=== PATIENT | female | born 1985 | race Asian ===

== ENCOUNTER 2023-07-10 16:30 | Outpatient (CLI) | payer OTHER ==
--- NOTE | 2023-07-10 17:11 | XRAY Report ---
PROCEDURE: Ankle 3 View RT INDICATIONS: PAIN OF RIGHT ANKLE JOINT TECHNIQUE: 3 views of the ankle were acquired. COMPARISON: None. FINDINGS: Bones: No acute fractures or dislocations. Ankle mortise is normally aligned. No suspicious bony l esions. Chronic appearing ossifications project over the distal medial malleolus and the lateral ankl e mortise. Oval ossification projecting over the lateral ankle mortise adjacent to the lateral talar dome is not definitively confirmed to be intra-articular on the lateral view as it is obscured. Soft tissues: No tibiotalar joint effusion. Achilles tendon appears normal. IMPRESSION: No acute bony abnormality. Possible intra-articular ossification within the lateral aspect of the tib iotalar joint seen on the AP and mortise views. However, no joint effusion seen. Consider dedicated r adiographic imaging of the foot to help determine if this ossification is possibly intra-articular in location. Otherwise, cross-sectional imaging may be considered. Reviewed by: Dinesh Cervantes MD on 07/10/2023 5:10 PM PDT Approved by: Dinesh Cervantes MD on 07/10/2023 5:10 PM PDT Station ID: [id number]
== END 2023-07-10 16:31 | disposition home or self-care (01) ==
LOC: DI 16:30
PROVIDERS: ATTEND Physician Assistant Medical
DX: M25.571 Pain in right ankle and joints of right foot (principal)

== ENCOUNTER 2023-08-01 07:34 | Outpatient (CLI) | payer OTHER ==
[2023-08-01 08:30] LABS: THYROID STIMULATING HORMONE 4.45 uIU/mL (0.34-5.60)
[2023-08-01 08:35] LABS: PROLACTIN 10.75 ng/mL
[2023-08-02 22:06] LABS: ESTRADIOL 75.5 pg/mL (.); PROGESTERONE 0.2 ng/mL (.); SEX HORM BINDING GLOB SERUM 46.9 nmol/L (24.6-122.0)
[2023-08-03 16:08] LABS: FREE TESTOSTERONE(DIRECT) 10.9 pg/mL (0.0-4.2)
== END 2023-08-01 07:35 | disposition home or self-care (01) ==
LOC: LAB 07:34
PROVIDERS: ATTEND Nurse Practitioner
DX: N92.6 Irregular menstruation, unspecified (principal)
CPT/HCPCS: 36415; 82627; 82670; 83001; 83002; 83498; 84144; 84146; 84270; 84402; 84403; 84443

== ENCOUNTER 2023-08-07 18:42 | Outpatient (CLI) | payer OTHER ==
--- NOTE | 2023-08-08 10:01 | Ultrasound Report ---
PROCEDURE: Pelvic w/Transvaginal INDICATIONS: IRREGULAR MENSTRATION TECHNIQUE: Real-time scanning was performed of the pelvic organs, with image documentation. Additional endovagi nal scanning was necessary due to incomplete visualization of the adnexal and endometrial structures by transabdominal scanning. COMPARISON: None. FINDINGS: Uterus: Uterus is anteverted and normal in size at 6.5 x 3.4 x 4.5 cm. The myometrium is homogeneou s. The endometrium measures 9.6 mm in combined thickness. A right anterior subserosal fibroid measu res 1.4 x 1.1 x 1.4 cm Ovaries: The right ovary measures 4.1 x 2.4 x 3.1 cm, with a calculated ovarian volume of 15.6 cc. The left ovary measures 3.2 x 3.0 x 2.9 cm, with a calculated ovarian volume of 14.8 cc. The right o vary has a 3.1 x 2.1 x 2.7 cm cyst.. Less than 12 follicles can be seen in each ovary. No adnexal m asses are seen. Other: No pathologic free abdominal or pelvic fluid. IMPRESSION: 1. 3.1 x 2.1 x 2.7 cm right ovarian cyst. 2. No acute ultrasound abnormality. Reviewed by: Isaías Ventura on 08/08/2023 9:00 AM [facility] Approved by: Isaías Ventura on 08/08/2023 9:00 AM [facility] Station ID: [id number]
== END 2023-08-07 18:43 | disposition home or self-care (01) ==
LOC: DI 18:42
PROVIDERS: ATTEND Nurse Practitioner
DX: N92.6 Irregular menstruation, unspecified (principal); N83.201 Unspecified ovarian cyst, right side